=== PATIENT | female | born 1940 | race Caucasian/White ===

== ENCOUNTER 2024-08-25 12:59 | Emergency (ER) | payer MEDICARE, SELFPAY ==
[2024-08-25 13:05] VITALS: BP 187/111
--- NOTE | 2024-08-25 15:02 | ED.MUSCINJ ---
HPI-Injury
General
Chief Complaint: Extremity Pain (non-traumatic)
Source: patient
Exam Limitations: none
Time Seen by Provider: 08/25/24 14:32
History of Present Illness-Injury
Initial Injury comments:
84-year-old female with history of dementia presents with who she lives with who states the patient's right leg has been swollen for the past several days. She has been complaining of pain to the lower leg as well. There has been no
complaints of chest pain or shortness of breath. She is diabetic. No known injury. No fevers. They were concerned about a blood clot. No other
Past History
Past History
ED Past Medical History: HTN, Hypercholesterolemia and NIDDM
ED Past Surgical History: Orthopedic
Social History
Tobacco: Non-smoker
Alcohol: None
Drug: None
Personal:
Living: with family
Phy Exam
Physical Exam
Physical Exam:
General: Well-appearing female no acute respiratory distress
HEENT: Normocephalic atraumatic
Heart: Regular rate and rhythm no murmurs
Lungs: Clear no wheeze
Extremity: Right leg with pitting edema left leg without edema. Subtle amount of erythema noted to the lower right leg. Slightly tender to the
Skin intact without drainage
Neurologic exam: Alert conversing appropriately
Injury Course
Orders/Labs/Results
Orders:
Orders
08/25/24 13:05
US Legs, Right [US Periph Venous LOWER Ext RT] Urgent
Comment:
Reason For Exam: swelling and pain
MDM/Problems Addressed
Differential Diagnosis Includes:
Right leg swelling. Consider DVT versus local injury versus cellulitis versus dependent edema. Left leg is not swollen. Do not suspect CHF.
Venous ultrasound negative for DVT. Given the diabetic state and slight erythema noted will cover for cellulitis. Keflex ordered. Tylenol ordered. Stable for discharge
*Critical Care Note
Total Time (30-74mins, 75-104mins- exclusive of procedures): Not Applicable
ED Attending Note
-
Portions of this chart may have been created with voice recognition software.� Occasional wrong word or��sound alike� substitutions may have occurred due to the inherent limitations of voice recognition software.
Discharge Plan
Departure
Patient Disposition: Home (Routine Discharge)
Date of Disposition: 08/25/24
Time of Disposition: 15:05
Patient with high blood pressure during this ER visit?: No
Discharge Problem:
Swelling, Cellulitis
Prescriptions:
New
cephalexin 500 mg capsule
500 mg PO QID 7 Days Qty: 28 0RF
No Action
metformin 1,000 MG tablet
1,000 mg PO BID@0800,1700
Patient Comments:
07/07/2020: Pt does not always take 2nd dose
atenolol 50 MG tablet
50 mg PO DAILY
hydrochlorothiazide 12.5 MG tablet
12.5 mg PO DAILYPRN PRN (Reason: lower extremity swelling)
insulin glargine [Lantus Solostar U-100 Insulin] 300 UNITS/3 ML insulin pen
10 units SC HS Qty: 5 0RF
losartan 25 mg Tablet
25 mg PO DAILY
insulin lispro [Humalog KwikPen Insulin] 100 unit/mL Insulin Pen
2 - 3 unit SC AC
Referrals:
Marilyn Salgado CRNP [Family Provider] -
Activity Restrictions/Additional Instructions:
Elevate for swelling. Use Tylenol for pain. Use antibiotic as directed. Return here for increasing symptoms
Interventions
Interventions:
*Risk Screen - Suicide Last Done: 08/25/24 13:02
*General Assessment Last Done: 08/25/24 13:02
*Neglect/Abuse Screening Last Done: 08/25/24 13:02
*ED COVID-19 Vaccine History Last Done: 08/25/24 13:02
ED-Skin Assessment Last Done: 08/25/24 13:54
ED-Peripheral Vascular Assessment Last Done: 08/25/24 13:54
ED-Musculoskeletal Assessment Last Done: 08/25/24 13:54
Discharge Date and Time
Print Language: MOHAWK
[2024-08-25] MEDS: TYLENOL 650 MG PO (15:11)
[2024-08-25 15:25] VITALS: BP 153/98
== END 2024-08-25 15:50 | disposition home or self-care (01) ==
LOC: EMR 12:59
PROVIDERS: EMERGENCY PHYSICIAN Student in an Organized Health Care Education/Training Program; FAMILY PHYSICIAN Nurse Practitioner Adult Health
DX: L03.115 Cellulitis of right lower limb (principal); I10 Essential (primary) hypertension; E78.00 Pure hypercholesterolemia, unspecified; E11.9 Type 2 diabetes mellitus without complications; F03.90 Unspecified dementia, unspecified severity, without behavioral disturbance, psychotic disturbance, mood disturbance, and anxiety
CPT/HCPCS: 99284; 93971

== ENCOUNTER 2024-10-21 14:33 | Inpatient (IN) | payer MEDICARE, SELFPAY ==
[2024-10-19 23:13] VITALS: BP 155/67
[2024-10-19 23:14] VITALS: BMI 23.4
[2024-10-19 23:32] LABS: % Basophils 0.4 % (0-2); % Eosinophils 3.2 % (0-6); % Immature Granulocytes 0.3 % (0-0.5); % Lymphocytes 25.8 % (20.5-51.1); % Monocytes 12.5 % (1.7-9.3); % Neutrophils 57.8 % (42.2-75.2); Absolute Eosinophils 0.2 10^3/uL (0-0.7); Absolute Lymphocytes 1.8 10^3/uL (1.2-3.4); Absolute Monocytes 0.9 10^3/uL (0.1-0.6); Hematocrit 33.3 % (37.0-47.0); Hemoglobin 10.7 g/dL (12.0-16.0); Mean Corp Hgb Conc. 32.1 g/dL (33.0-37.0); Mean Corpuscular Hgb 26.8 pg (27.0-31.0); Mean Corpuscular Volume 83.5 fL (81.0-99.0); Mean Platelet Volume 10.1 fL (7.4-10.4); Nucleated Red Blood Cells % 0 %; Platelet Count 283 10^3/uL (130-400); Red Blood Cell Count 3.99 10^6/uL (4.20-5.40); Red Cell Dist. Width 14.9 % (11.5-14.5); White Blood Cell Count 6.9 10^3/uL (4.8-10.8)
[2024-10-19 23:50] LABS: ALT (SGPT) 16 U/L (0-35); AST (SGOT) 19 U/L (14-36); Alkaline Phosphatase 83 U/L (38-126); Blood Urea Nitrogen 25 mg/dl (7-17); Carbon Dioxide 28 mmol/L (22-30); Chloride 102 mmol/L (98-107); Estimated Creatinine Clearance 73 ml/min; Glucose 124 mg/dl (70-99); Potassium 4.1 mmol/L (3.5-5.1); Sodium 137 mmol/L (135-145); Total Bilirubin 0.5 mg/dl (0.2-1.3); eGFR > 60.00
[2024-10-20] VITALS (9 sets, daily range): BP systolic 119–179; BP diastolic 58–100; PULSE 61–70; O2SAT 96
--- NOTE | 2024-10-20 00:11 | ED.GENMED ---
History of Present Illness
General
Chief Complaint: Change in Mental Status
Source: patient, spouse, family and ambulance crew
Exam Limitations: dementia
Time Seen by Provider: 10/20/24 00:04
Nursing documentation reviewed up to this point in time: agreed with
History of Present Illness
History of Present Illness:
84-year-old female with a past medical history of dementia, hypertension, hyperlipidemia, diabetes who presents to the emergency room with her and daughter; presents via EMS for evaluation after episode of vision loss and left arm weakness.
Patient has significant dementia at baseline she does not ambulate well has very poor strength in her legs. Requires assistance from . Apparently tonight about 10 PM was in the bathroom standing with when she became weaker than
usual could not stand was crying that she could not see and had left arm weakness. EMS called to the scene; says this lasted for just under an hour and it seems to have completely resolved.
Past History
Past History
ED Past Medical History: HTN, Hypercholesterolemia and NIDDM
ED Past Surgical History: Orthopedic
Social History
Tobacco: Non-smoker
Alcohol: None
Drug: None
Personal:
Living: with family
Review of Systems
Review of Systems
Unable to obtain full review of systems at this time due to: dementia
All Other Systems: Not applicable
Phy Exam
Physical Exam
Physical Exam:
General: Awake, alert, pleasantly demented; no acute distress
Head: Normocephalic, atraumatic
Eyes: Conjunctiva normal, EOMI, pupils equal round and reactive to light bilaterally
Throat: Airway intact, handling secretions
Neck: Trachea midline, supple without meningismus
Lungs: Clear to auscultation bilaterally, no wheezing, rales, rhonchi
Heart: Regular rate and rhythm, no murmurs, gallops, or rubs
Neuro: Cranial nerves intact, speech fluid, motor and sensory intact in all extremities
Skin: no rash
Extremities: No edema in extremities, warm and well-perfused
Scores
Heart Failure Risk
Heart Failure Risk Score: Not Applicable
Heart Score for Chest Pain Patients
STEMI patient?: Not applicable
Withdrawal Assessment of Alcohol
Withdrawal Assessment Completed?: Not applicable
Course
Orders/Labs/Results
Orders:
Orders
10/19/24 23:17
Complete Blood Count/With Diff Urgent
Comprehensive Metabolic Panel Urgent
10/20/24 00:10
CT Head W/o Iv Contrast Urgent
Comment:
Reason For Exam: left arm weakness, visual disturbance
10/20/24 00:57
Electrocardiogram (*1) Urgent
Reason for Study: TIA/Stroke
EKG- Treatment ONCE
Abnormal Lab Results
10/19/24
23:17
RBC 3.99 L 10^6/uL
(4.20-5.40)
Hgb 10.7 L g/dL
(12.0-16.0)
Hct 33.3 L %
(37.0-47.0)
MCH 26.8 L pg
(27.0-31.0)
MCHC 32.1 L g/dL
(33.0-37.0)
RDW 14.9 H %
(11.5-14.5)
Absolute Monos (auto) 0.9 H 10^3/uL
(0.1-0.6)
Monocytes % 12.5 H %
(1.7-9.3)
BUN 25 H mg/dl
(7-17)
Glucose 124 H mg/dl
(70-99)
10/19/24 23:17
10/19/24 23:17
Vital Signs
Initial and Last Documented VS:
Initial Vital Signs
Temp Pulse Resp Pulse Ox
36.5 C 71 18 98
10/19/24 23:07 10/19/24 23:07 10/19/24 23:07 10/19/24 23:07
Last Documented Vital Signs
Temp Pulse Resp BP Pulse Ox
36.9 C 67 16 155/67 98
10/20/24 01:10 10/19/24 23:45 10/19/24 23:45 10/19/24 23:13 10/19/24 23:15
MDM/Problems Addressed
Differential Diagnosis Includes:
TIA, stroke, brain bleed, seizure
MDM/Problems Addressed:
84-year-old female presents with family after episode of reported vision disturbance, left arm weakness and weakness in the legs. Lasted for less than an hour and seems to have resolved. Vitals and exam as above. History concerning for TIA. Labs
sent off unremarkable. CT head pending. Plan for admission pending CT.
CT head no acute abnormality. Clinical status stable. Plan to admit for further evaluation and monitoring with concern for TIA. Discussed with hospitalist.
Chronic conditions affecting care:
Hypertension, hyperlipidemia, diabetes�high risk for stroke
Chronic conditions affecting care: DM and HTN
*Radiology
Radiology exam reviewed: radiology read reviewed
*Pulse Oximetry
Patient hypoxic: no
*EKG
Interpreted by ED Provider?: Yes
Heart Rate: 74
Rate: normal
Rhythm: sinus
Converse: normal axis
Interval: normal interval
QRS Pattern: normal QRS
Ischemia: non-specific ST changes
*Critical Care Note
Total Time (30-74mins, 75-104mins- exclusive of procedures): Not Applicable
Data Reviewed
Review of Other/Old Records Reveals: Labs and Records
Source: patient, spouse, family and ambulance crew
Patient Management
Discussion with other providers: Hospitalist (Discussed with hospitalist)
Escalation/DeEscalation of care consider admission/obs:
Admission indicated
ED Attending Note
-
Portions of this chart may have been created with voice recognition software.� Occasional wrong word or��sound alike� substitutions may have occurred due to the inherent limitations of voice recognition software.
Discharge Plan
Departure
Presentation/result/management discussed w/ accepting MD/DO: Hospitalist
Discharge Problem:
TIA (transient ischemic attack)
Prescriptions:
No Action
metformin 1,000 MG tablet
1,000 mg PO BID@0800,1700
Patient Comments:
07/07/2020: Pt does not always take 2nd dose
atenolol 50 MG tablet
50 mg PO DAILY
hydrochlorothiazide 12.5 MG tablet
12.5 mg PO DAILYPRN PRN (Reason: lower extremity swelling)
insulin glargine [Lantus Solostar U-100 Insulin] 300 UNITS/3 ML insulin pen
10 units SC HS Qty: 5 0RF
losartan 25 mg Tablet
25 mg PO DAILY
insulin lispro [Humalog KwikPen Insulin] 100 unit/mL Insulin Pen
2 - 3 unit SC AC
cephalexin 500 mg capsule
500 mg PO QID 7 Days Qty: 28 0RF
Referrals:
Marilyn Salgado CRNP [Family Provider] -
Interventions
Interventions:
*Risk Screen - Suicide Last Done: 10/19/24 23:07
*General Assessment Last Done: 10/19/24 23:07
*Neglect/Abuse Screening Last Done: 10/19/24 23:07
*ED COVID-19 Vaccine History Last Done: 10/19/24 23:14
ED- Neurological Assessment Last Done: 10/20/24 00:31
Discharge Date and Time
Print Language: UZBEK
--- NOTE | 2024-10-20 00:53 | PTCARENOTE ---
Daughter Larisa wants to be contacted first if there are any issues. Verified phone number.
[2024-10-20] MEDS: ASPIRIN 325 MG PO (02:19)
--- NOTE | 2024-10-20 03:19 | HPS.HSE ---
Family Physician
-
Family Physician: Marilyn Salgado
Chief Complaint
-
Weakness
History of Present Illness
Patient is an 84y F with PMH significant for hypertension, DM-II and dementia who presents to ED for evaluation of weakness and vision changes. History obtained from ED staff. Patient has advanced dementia and is unable to contribute to this
history. Family not present at the time of my examination.
Patient reportedly noted to have difficulty standing with apparent L arm and L leg weakness this evening around 10 PM. She complained that she 'could not see'.
911 was called and patient was brought to the ED for further evaluation.
At this time, her symptoms have fully resolved. They reportedly lasted for about an hour in total.
No report of any similar / prior symptoms.
Patient's only complaint at present is of pain in the RLE. This is apparently a known / chronic issue.
Outpatient records include a RLE Doppler done 08/25/24 which was negative for DVT.
Medical History
Past Medical History
Past Medical History: Reports Other
Additional Past Medical History:
Hypertension
DM-II
Senile Dementia
Meniere's Disease
Thyroid Nodule
Past Surgical History: Reports Other
Additional Past Surgical History:
Bilateral Tubal Ligation
Left Knee Surgery
Social History
Tobacco: Non-smoker
Alcohol: None
Drug: None
Family History
Family History: Not pertinent
Allergies / Home Medications
Allergies reflects when Allergies were last updated in [employer].
Home Medications with original date entered in [employer]
Allergy/Medication List:
Allergies
Allergy/AdvReac Type Severity Reaction Status Date / Time
diltiazem Allergy was listed Verified 08/25/24 13:01
on doctors
oddice
records pt
doesnt
recall
oxycodone Allergy Unknown Verified 08/25/24 13:01
Home Medications
atenolol 50 mg tablet 50 mg PO DAILY Blood pressure 07/07/20
hydrochlorothiazide 12.5 mg tablet 12.5 mg PO DAILYPRN PRN lower extremity swelling 07/07/20
metformin 1,000 mg tablet 1,000 mg PO BID@0800,1700 Diabetes 07/07/20
insulin glargine 100 unit/mL (3 mL) subcutaneous pen (Lantus Solostar U-100 Insulin) 10 units SC HS ##5 07/10/20
insulin lispro 100 unit/mL subcutaneous pen (Humalog KwikPen (U-100) Insulin) 2 - 3 unit SC AC 04/07/23
losartan 25 mg tablet 25 mg PO DAILY 04/07/23
cephalexin 500 mg capsule 500 mg PO QID 7 days #28 caps 08/25/24
Review of Systems
-
Unable to obtain full review of systems at this time due to: Dementia
History Source: Patient
Constitutional: Denies Fever
Respiratory: Denies Cough
Cardiac: Denies Chest Pain
Abdomen/GI: Denies Nausea or Vomiting
Musculoskeletal: Reports Joint Pain (RLE pain)
Neurological: Denies Dizzy or Headache
Physical Exam
Vital Signs
Vital Signs
Temp Pulse Resp BP Pulse Ox
98.5 F 67 16 154/76 97
10/20/24 01:10 10/19/24 23:45 10/19/24 23:45 10/20/24 02:00 10/20/24 02:00
Physical Exam
General: Other (84y F in no acute distress.)
HEENT: Moist mucous membranes and PERRLA
Respiratory: Clear; No Wheezes, Rales or Rhonchi
Cardiac: S1/S2 and Regular Rhythm; No Murmur
GI: Soft, Non Tender, Non Distended and Normal Bowel Sounds
Musculoskeletal: No Clubbing, No Cyanosis and Other (Trace - 1+ LE edema - R > L.)
Neuro: Awake, Alert and Nonfocal/grossly intact; No Oriented
Laboratory Results
-
10/19/24 23:17
10/19/24 23:17
Laboratory Results
Total Bilirubin 0.5 mg/dl (0.2-1.3) 10/19/24 23:17
AST 19 U/L (14-36) 10/19/24 23:17
ALT 16 U/L (0-35) 10/19/24 23:17
Alkaline Phosphatase 83 U/L (38-126) 10/19/24 23:17
Impression/Plan
-
A/P: Patient is an 84y F with PMH significant for HTN, DM-II and dementia who presents to ED for evaluation of L sided weakness and vision changes.
CVA / TIA
- Observe overnight for further evaluation and treatment.
- CT head with no acute changes.
- Monitor overnight for any new / recurrent neurologic deficits.
- MRI in AM.
- ASA daily for now.
- PT / OT evaluations.
Benign Hypertension
- Stable. Continue usual medications with holding parameters.
DM-II
- Stable. Hold metformin acutely.
- Continue basal insulin + SSI.
- Update A1C.
RLE Pain
- Seems a chronic / ongoing issue for the patient.
- Doppler was negative for DVT in August.
- PT / OT as noted above.
- Follow for any new / worsening symptoms.
Senile Dementia
- Not on any chronic medications for memory, mood, etc.
- Follow for agitation / delirium during acute hospitalization.
DVT Prophylaxis: SCDs
Code Status: Full
[2024-10-20] MEDS: COZAAR 25 MG PO (09:13)
[2024-10-20] MEDS: LOW STRENGTH ASPIRIN 81 MG PO (09:14)
[2024-10-20] MEDS: TENORMIN 50 MG PO (09:16)
[2024-10-20] MEDS: NOVOLOG FLEXPEN-LOW RESISTANCE SC ×3 (09:21→18:14)
[2024-10-20 09:22] LABS: Glucose - Point of Care 82 mg/dl (70-99)
--- NOTE | 2024-10-20 11:55 | PTCARENOTE ---
Mri clled for patient. Patient continues to be confused and climbing out of bed.[place] texted Dr Venegas for sedation order.
--- NOTE | 2024-10-20 13:58 | W.PN.UPDATE ---
Update Note
Progress Note Update
Awaiting MRI
[2024-10-20 15:06] LABS: Glucose - Point of Care 95 mg/dl (70-99)
[2024-10-20 16:19] LABS: Urine Albumin 1+ (Neg - Trace); Urine Bilirubin Negative (Negative); Urine Character Clear (Clear); Urine Color Yellow; Urine Glucose Negative (Negative); Urine Ketone Negative (Negative); Urine Leukocyte 1+ (Negative); Urine Nitrite Negative (Negative); Urine Occult Blood Negative (Negative); Urine Urobilinogen Negative (Neg - 1+)
[2024-10-20] MEDS: HALDOL 2 MG IM (16:25)
[2024-10-20 16:28] LABS: Urine Squamous Cell 16-20 /LPF (Few)
[2024-10-20 16:29] LABS: Urine Red Blood Cell 0-2 /HPF (0-2)
[2024-10-20 16:30] LABS: Urine Bacteria Few (Negative)
--- NOTE | 2024-10-20 16:50 | PTCARENOTE ---
Pt received Haldol and sent to MRI, report called to Joselyn of [facility]. Pt will transfer to [facility] after MRI.
[2024-10-20 18:13] LABS: Glucose - Point of Care 111 mg/dl (70-99)
[2024-10-20 21:22] LABS: Glucose - Point of Care 115 mg/dl (70-99)
[2024-10-20] MEDS: LANTUS SC (22:25)
[2024-10-21] VITALS (9 sets, daily range): BP systolic 126–157; BP diastolic 50–74; PULSE 51–53; O2SAT 98; BMI 22.1
--- NOTE | 2024-10-21 02:02 | PTCARENOTE ---
Patient bladder scanned for 638ml and straight cath for 600ml yellow urine.
[2024-10-21 06:33] LABS: Hemoglobin 10.5 g/dL (12.0-16.0); Mean Corp Hgb Conc. 32.8 g/dL (33.0-37.0); Mean Corpuscular Hgb 27.3 pg (27.0-31.0); Mean Corpuscular Volume 83.3 fL (81.0-99.0); Mean Platelet Volume 10.6 fL (7.4-10.4); Platelet Count 286 10^3/uL (130-400); Red Blood Cell Count 3.84 10^6/uL (4.20-5.40); Red Cell Dist. Width 15.1 % (11.5-14.5)
[2024-10-21 07:03] LABS: Blood Urea Nitrogen 17 mg/dl (7-17); Calcium 9.7 mg/dl (8.4-10.2); Carbon Dioxide 24 mmol/L (22-30); Chloride 106 mmol/L (98-107); Estimated Creatinine Clearance 73 ml/min; Glucose 136 mg/dl (70-99); HDL Cholesterol 51 mg/dl; LDL Cholesterol, Calculated 107 mg/dl; Potassium 4.6 mmol/L (3.5-5.1); Sodium 136 mmol/L (135-145); Total Cholesterol 191 mg/dl (50-199); Triglyceride 167 mg/dl (10-149); Very Low Density Lipoprotein 33 mg/dl (0-30); eGFR > 60.00
[2024-10-21 07:46] LABS: Glucose - Point of Care 147 mg/dl (70-99)
[2024-10-21] MEDS: NOVOLOG FLEXPEN-LOW RESISTANCE SC (08:02)
[2024-10-21] MEDS: LOW STRENGTH ASPIRIN 81 MG PO (08:03)
[2024-10-21] MEDS: TENORMIN 50 MG PO (08:03)
[2024-10-21] MEDS: COZAAR 25 MG PO (08:04)
[2024-10-21] MEDS: DESENEX/MITRAZOL/ZEASORB 1 APPLIC TOPICAL ×2 (08:04→20:38)
[2024-10-21 10:03] LABS: Glycohemoglobin (HgbA1c) 7.2 % (4.0-5.6)
[2024-10-21 11:35] LABS: Glucose - Point of Care 251 mg/dl (70-99)
[2024-10-21] MEDS: NOVOLOG FLEXPEN-LOW RESISTANCE 3 UNITS SC ×2 (12:47→18:11)
--- NOTE | 2024-10-21 14:23 | W.PN.HOSP.TC ---
Today's Communication/Plan
-
seroquel
f/u
anticipate dc within 24 hours
Assessment / Plan
Assessment / Plan
Physical Exam
General: Other (84y F in no acute distress.)
HEENT: Moist mucous membranes and PERRLA
Respiratory: Clear; No Wheezes, Rales or Rhonchi
Cardiac: S1/S2 and Regular Rhythm; No Murmur
GI: Soft, Non Tender, Non Distended and Normal Bowel Sounds
Musculoskeletal: No Clubbing, No Cyanosis and Other (Trace - 1+ LE edema - R > L.)
Neuro: Awake, Alert and Nonfocal/grossly intact; No Oriented
A/P: Patient is an 84y F with PMH significant for HTN, DM-II and dementia who presents to ED for evaluation of L sided weakness and vision changes.
Altered mental status
Agitation
� Suspect #delirium
�back to baseline
�Add Seroquel twice daily for agitation
� Follow-up UA
� MRI with no gross acute findings although difficult study
�Family physician discontinued aspirin for fall risk, discontinue
Benign Hypertension
- Stable. Continue usual medications with holding parameters.
DM-II
- Stable. Hold metformin acutely.
- Continue basal insulin + SSI.
- Update A1C.
RLE Pain
- Seems a chronic / ongoing issue for the patient.
- Doppler was negative for DVT in August.
- PT / OT as noted above.
- Follow for any new / worsening symptoms.
Senile Dementia
- Not on any chronic medications for memory, mood, etc.
- Follow for agitation / delirium during acute hospitalization.
DVT Prophylaxis: hsq
Code Status: Full
Anticipated Discharge: Within 24 hours
Subjective/Interval History
-
Date of Service: October 21, 2024
back to baseline as per daughter
Objective Data
-
Labs:
Laboratory Results
10/21/24
05:51
WBC 6.0
Hgb 10.5 L
Hct 32.0 L
Plt Count 286
Sodium 136
Potassium 4.6
Chloride 106
Carbon Dioxide 24
BUN 17
Creatinine 0.5 L
Glucose 136 H
Calcium 9.7
Vital Signs:
Vital Signs
Temp Pulse Resp BP Pulse Ox
97.5 F 61 17 126/50 98
10/21/24 11:25 10/21/24 11:25 10/21/24 11:25 10/21/24 11:25 10/21/24 13:01
I&O
10/20/24 10/21/24 10/22/24
06:59 06:59 06:59
Intake Total 0 / 0
Output Total 600 / 600 100 / 100
Balance -600 / -600 -100 / -100
Review of Systems
-
History Source: Patient
All other systems: Not reviewed unless documented
Data Reviewed
-
Diagnostic Radiology: Report Reviewed by me
CT Scan: Report Reviewed by me
MRI: Report Reviewed by me
Labs: Labs Reviewed by me
[2024-10-21] MEDS: HEPARIN 5000 UNITS SC ×2 (15:05→23:36)
--- NOTE | 2024-10-21 16:10 | CM ---
Patient seen at bedside. CM spoke with patient and patient daughter (POA) via phone. Patient stated that they have a one floor set up and stands with husbands help to pivot to bathroom. Patient FLIGHT COMMUNICATIONS OFFICER is Marilyn Brantley and they use the
[facility] in [place]. Patient has rejected all VN visits in the past per patient daughter and . Patient confused and does better with routine per family. Patient was OBS and now is changed to INP per chart list. CM will continue to follow
for discharge planning needs. CM will email patient daughter OBS form. CM will continue to follow for discharge planning needs.
Plan; SNF vs home with VN; watch for VN needs
[2024-10-21 16:41] LABS: Glucose - Point of Care 258 mg/dl (70-99)
[2024-10-21] MEDS: SEROQUEL 12.5 MG PO (20:40)
[2024-10-21 21:28] LABS: Glucose - Point of Care 182 mg/dl (70-99)
[2024-10-21] MEDS: LANTUS 0.1 UNITS SC (21:58)
[2024-10-22 03:19] VITALS: BP 143/53
[2024-10-22 06:05] VITALS: BMI 22.4
[2024-10-22 06:49] LABS: Hematocrit 33.3 % (37.0-47.0); Hemoglobin 10.7 g/dL (12.0-16.0); Mean Corp Hgb Conc. 32.1 g/dL (33.0-37.0); Mean Corpuscular Hgb 26.8 pg (27.0-31.0); Mean Corpuscular Volume 83.3 fL (81.0-99.0); Mean Platelet Volume 10.2 fL (7.4-10.4); Platelet Count 305 10^3/uL (130-400); Red Cell Dist. Width 14.9 % (11.5-14.5); White Blood Cell Count 7.7 10^3/uL (4.8-10.8)
[2024-10-22 07:39] LABS: Glucose - Point of Care 107 mg/dl (70-99)
[2024-10-22 07:43] LABS: Blood Urea Nitrogen 17 mg/dl (7-17); Calcium 9.6 mg/dl (8.4-10.2); Carbon Dioxide 27 mmol/L (22-30); Chloride 106 mmol/L (98-107); Estimated Creatinine Clearance 73 ml/min; Glucose 104 mg/dl (70-99); Potassium 4.2 mmol/L (3.5-5.1); Sodium 140 mmol/L (135-145); eGFR > 60.00
[2024-10-22 07:54] VITALS: BP 141/71
[2024-10-22] MEDS: NOVOLOG FLEXPEN-LOW RESISTANCE SC ×2 (09:58→17:00)
[2024-10-22] MEDS: COZAAR 25 MG PO (09:59)
[2024-10-22] MEDS: SEROQUEL 12.5 MG PO (10:00)
[2024-10-22] MEDS: HEPARIN 5000 UNITS SC (10:01)
[2024-10-22] MEDS: DESENEX/MITRAZOL/ZEASORB 1 APPLIC TOPICAL (10:06)
[2024-10-22] MEDS: TENORMIN 50 MG PO (10:14)
--- NOTE | 2024-10-22 11:24 | CM ---
Addendum entered by Christina Collins 10/22/24 16:55:
Daughter given list of Private Duty Care Givers in the area
Addendum entered by Christina Collins 10/22/24 15:12:
IMM benefit explained to daughterLarisa; form signed @ [id number]
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
Addendum entered by Christina Collins 10/22/24 13:55:
[facility] out of network for [place]; [facility] unwilling to accept referral
CM spoke with patient's daughterLarisa, via phone; daughter decided not to expand SNF search and reported that they will have mother come home with home health; agency options provided; preference is VNA; referral sent to VNA liaison
Plan: Discharge to home with home health; ambulance transport needed; home has a Ramp to enter
Original Note:
PT recommended SNF when stable for discharge; CM discussed recommendation with patient's family ( and daughter/Larisa GRAY, via speaker phone; and granddaughter at patient's bedside); is currently 's primary caregiver and
prefers that patient go home with home health services; daughter and granddaughter prefer that referrals are sent for short term skilled bed for rehab
List of SNF options from medicare.gov website; list reviewed; referral process including need to obtain insurance authorization approval explained
Site preferences are [facility] and [facility]; [facility]
Plan: Discharge to SNF when stable pending bed availability and AUTH approval
[2024-10-22 11:28] VITALS: BP 114/46
[2024-10-22 11:37] LABS: Glucose - Point of Care 188 mg/dl (70-99)
--- NOTE | 2024-10-22 13:57 | VNURNOTE ---
Addendum entered by Carmen Webster RN 10/22/24 15:58:
[facility] liaison spoke to patient's daughter Larisa at bedside. Explained [facility] services: skilled, short term, intermittent services. Urged daughter to investigate arranging private caregivers/companions as patient needs assist of > 2 people.
Refusing SNF as patient is 'really good' some days per daughter. Explained that moods and ADL ability can be labile with dementia. Liaison expressed concerns that care at home might be too much for family to manage. Emotional support provided.
CM to provide list of caregivers to daughter. [employer] PROFESSOR consult added to VN referral.
Original Note:
Home Health Liaison attempted to meet with patient- she was asleep. Great granddaughter at bedside who requested I speak with other members of family. This author called patient's spouse Juan Carlos. No answer. Left voicemail. Left message informing
of [facility] nurse/therapy, visits, schedule. Also informed that visits at home will be 2-3 x per week to assess and teach medical management. Provided with [facility] contact information. Notified that [facility] will contact them for start of care in 1-2 days
after discharge from .
[facility] referral completed in [facility].
--- NOTE | 2024-10-22 13:57 | W.PN.HOSP.TC ---
Addendum entered and electronically signed by Theo Cartagena MD 10/24/24 16:18:
[id number]
Original Note:
Today's Communication/Plan
-
seroquel
f/u pcp outpt
Assessment / Plan
Assessment / Plan
Physical Exam
General: Other (84y F in no acute distress.)
HEENT: Moist mucous membranes and PERRLA
Respiratory: Clear; No Wheezes, Rales or Rhonchi
Cardiac: S1/S2 and Regular Rhythm; No Murmur
GI: Soft, Non Tender, Non Distended and Normal Bowel Sounds
Musculoskeletal: No Clubbing, No Cyanosis and Other (Trace - 1+ LE edema - R > L.)
Neuro: Awake, Alert and Nonfocal/grossly intact; No Oriented
A/P: Patient is an 84y F with PMH significant for HTN, DM-II and dementia who presents to ED for evaluation of L sided weakness and vision changes.
Altered mental status
Agitation
� Suspect #delirium and worsening dementia
�back to baseline
�Add Seroquel twice daily for agitation - titrate outpt
� UA neg
� MRI with no gross acute findings although difficult study
�Family physician discontinued aspirin for fall risk, discontinue
Benign Hypertension
- Stable. Continue usual medications with holding parameters.
DM-II
- Stable. Hold metformin acutely.
- Continue basal insulin + SSI.
RLE Pain
- Seems a chronic / ongoing issue for the patient.
- Doppler was negative for DVT in August.
- PT / OT as noted above.
- Follow for any new / worsening symptoms.
Senile Dementia
- Not on any chronic medications for memory, mood, etc.
- Follow for agitation / delirium during acute hospitalization.
DVT Prophylaxis: hsq
Code Status: Full
More than 30 minutes spent in discharge including
Final examination of the patient
Summarizing hospital stay
Instructions for continuing care to all relevant caregivers
Preparation of discharge records, prescriptions, and referral forms
Total time spent (36 in minutes):
Anticipated Discharge: Today
Subjective/Interval History
-
Date of Service: October 22, 2024
no acute events, at baseline as per family
Objective Data
-
Labs:
Laboratory Results
10/22/24
05:57
WBC 7.7
Hgb 10.7 L
Hct 33.3 L
Plt Count 305
Sodium 140
Potassium 4.2
Chloride 106
Carbon Dioxide 27
BUN 17
Creatinine 0.6
Glucose 104 H
Calcium 9.6
Vital Signs:
Vital Signs
Temp Pulse Resp BP Pulse Ox
97.4 F 68 16 114/46 94
10/22/24 11:28 10/22/24 11:28 10/22/24 11:28 10/22/24 11:28 10/22/24 11:28
I&O
10/21/24 10/22/24 10/23/24
06:59 06:59 06:59
Intake Total 0 / 0 360 / 360
Output Total 600 / 600 1410 / 1410
Balance -600 / -600 -1050 / -1050
Review of Systems
-
History Source: Patient
All other systems: Not reviewed unless documented
Data Reviewed
-
Diagnostic Radiology: Report Reviewed by me
CT Scan: Report Reviewed by me
MRI: Report Reviewed by me
Labs: Labs Reviewed by me
--- NOTE | 2024-10-22 13:59 | W.DS.TRANS ---
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
-
Discharge Instructions:
Discharge Diagnosis/Procedures Altered mental status
Agitation
Diet Low Cholesterol,Low Fat,Diabetic, Carb
Controlled
Activity As tolerated
Instructions:
Stand-Alone Forms:
Changes to Home Medications: Yes
Discharge Medications:
DC Medications w/original date entered in [facility]
atenolol 50 mg tablet 50 mg PO DAILY Blood pressure 07/07/20
hydrochlorothiazide 12.5 mg tablet 12.5 mg PO DAILYPRN PRN lower extremity swelling 07/07/20
metformin 1,000 mg tablet 1,000 mg PO BID@0800,1700 Diabetes 07/07/20
insulin glargine 100 unit/mL (3 mL) subcutaneous pen (Lantus Solostar U-100 Insulin) 10 units SC HS ##5 07/10/20
insulin lispro 100 unit/mL subcutaneous pen (Humalog KwikPen (U-100) Insulin) 2 - 3 unit SC AC 04/07/23
losartan 25 mg tablet 25 mg PO QPM 04/07/23
acetaminophen 325 mg tablet (Tylenol) 650 mg PO Q4HPRN PRN mild pain 10/20/24
therapeutic multivitamin 1 tab PO DAILY 10/20/24
miconazole nitrate 2 % topical powder (Miconazorb AF) 1 applic topical BID #85 grams 10/22/24
quetiapine 25 mg tablet 12.5 mg (1/2 x 25 mg) PO BID 30 days #30 tabs 10/22/24
Home Medication Changes
miconazole nitrate 2 % topical powder (Miconazorb AF) 1 applic topical BID #85 grams 10/22/24
quetiapine 25 mg tablet 12.5 mg (1/2 x 25 mg) PO BID 30 days #30 tabs 10/22/24
Pending Results: No
[2024-10-22] MEDS: NOVOLOG FLEXPEN-LOW RESISTANCE 1 UNITS SC (14:40)
[2024-10-22 15:04] VITALS: BP 139/65
--- NOTE | 2024-10-22 15:16 | PTCARENOTE ---
patient confused and forgetful, not able to reorient to reality, cooperative though, tolerating diet, turns with max assist x2-3, vss, will continue to monitor.
--- NOTE | 2024-10-22 16:07 | VNURNOTE ---
Home Health Liaison attempted to meet with patient- she was asleep. Great granddaughter at bedside who requested I speak with other members of family. This author called patient's spouse Juan Carlos. No answer. Left voicemail. [facility] liaison spoke to
patient's daughter Larisa at bedside. Explained [facility] services: skilled, short term, intermittent services. Urged daughter to investigate arranging private caregivers/companions as patient needs assist of > 2 people. Refusing SNF as patient is
'really good' some days per daughter. Emotional support provided. [facility] to provide list of caregivers to daughter. S[employer] EXECUTIVE consult added to [facility] referral.
[2024-10-22 16:15] LABS: Glucose - Point of Care 248 mg/dl (70-99)
[2024-10-22] MEDS: HEPARIN SC (16:59)
--- NOTE | 2024-10-22 19:55 | PTCARENOTE ---
went over discharge instructions with patient's daughter, for discharge to home, awaiting ambulance arrival. next Shift ITZ Tucker made aware to remove telemetry and IV prior to patient leaving.
[2024-10-22 20:04] VITALS: BP 129/55
== END 2024-10-22 20:35 | disposition home health service (06) | DRG 884 ==
LOC: 3 WEST ACU 14:33
PROVIDERS: Student in an Organized Health Care Education/Training Program; ADMITTING PHYSICIAN Hospitalist; ATTENDING PHYSICIAN Internal Medicine; EMERGENCY PHYSICIAN Emergency Medicine; FAMILY PHYSICIAN Nurse Practitioner Adult Health
DX: F03.911 Unspecified dementia, unspecified severity, with agitation (principal); F05 Delirium due to known physiological condition; I10 Essential (primary) hypertension; E11.9 Type 2 diabetes mellitus without complications; H81.09 Meniere's disease, unspecified ear; Z88.5 Allergy status to narcotic agent; E04.1 Nontoxic single thyroid nodule; Z79.84 Long term (current) use of oral hypoglycemic drugs; Z79.4 Long term (current) use of insulin; E78.00 Pure hypercholesterolemia, unspecified
CPT/HCPCS: 70450; 70551; 73502; 80048; 80053; 80061; 81003; 81015; 82962; 83036; 85025; 85027; 87086; 93005; 97163; 97167; 97530